=== PATIENT | female | born 1970 | race Caucasian/White ===

== ENCOUNTER 2021-09-01 08:17 | Outpatient (CLI) | payer BC, SELFPAY ==
--- NOTE | 2021-09-01 | XR_ITS ---
WS: [id number] WRIST RIGHT TECHNIQUE: 3 views of the LEFT wrist CLINICAL INFORMATION: LEFT WRIST PAIN COMPARISON: None. FINDINGS: Normal radiocarpal joint. Scaphoid is normal in appearance. No evidence of radiocarpal dislocation. Distal radius and ulna are normal in appearance. Mild soft tissue edema. [facility] XR/XR wrist LT min 3V* [id number] IMPRESSION: No acute fractures
== END 2021-09-01 08:18 | disposition home or self-care (01) ==
LOC: RADOUTREAD 09-02 08:54
PROVIDERS: Visit Provider Nurse Practitioner Family
DX: M25.531 Pain in right wrist (principal)
CPT/HCPCS: 73110